=== PATIENT | male | born 1980 | race Hispanic/Latino ===

== ENCOUNTER 2023-06-20 14:13 | Emergency (ER) | payer OTHER, SELFPAY ==
[2023-06-20] MEDS ORDERED: Lidocaine 1% w/Epinephrine 1:100K 20 ML VIAL ONE (14:18)
[2023-06-20] MEDS ORDERED: Bacitracin 1 PK ONE (14:46)
== END 2023-06-20 15:05 | disposition home or self-care (01) ==
LOC: NAV ERS 14:13
DX: S81.812A Laceration without foreign body, left lower leg, initial encounter (principal); W27.0XXA Contact with workbench tool, initial encounter; Y93.H3 Activity, building and construction; Y92.61 Building [any] under construction as the place of occurrence of the external cause
CPT/HCPCS: 12002